=== PATIENT | female | born 2000 | race Caucasian/White ===

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

== ENCOUNTER 2021-03-03 01:21 | Emergency (ER) | payer OTHER, MEDICAID, SELFPAY ==
--- NOTE | 2021-03-03 01:23 | ED.BACK ---
HPI - Back Pain/Injury General Chief Complaint: Urogenital-Female Stated Complaint: lower lt back pain, radiating to rt side Time Seen by Provider: 03/03/21 01:23 History of Present Illness HPI Narrative: 20-year-old female nonsmoker presents with her significant other and a chief complaint of about 10 days of urinary complaints including dysuria, frequency and urgency. She has had UTIs in the past and states this feels similar. She has some tenderness over her bladder and states that it feels like it is wrapping around into her low back. She is nauseated but has no vomiting. She feels feverish but has not checked her temperature. Her pain is minimal. She denies any chest pain or shortness of breath. She is not dizzy nor weak or lightheaded. Related Data Home Medications Medication Instructions Recorded Confirmed CA PANTOTHENATE/FOLIC ACID/VIT 1 tab PO QDAY #0 07/24/10 (MULTIVITAMIN) Previous Rx's Medication Instructions Recorded amoxicillin 875 mg-potassium 1 tab PO BID #20 tab 12/08/19 clavulanate 125 mg tablet cefpodoxime 200 mg tablet 200 mg PO BID 10 Days #20 tab 03/03/21 fluconazole 150 mg tablet 150 mg PO Q3D #2 tab 03/03/21 Allergies Allergy/AdvReac Type Severity Reaction Status Date / Time red dye Allergy Rash Verified 12/08/19 00:30 Review of Systems Review of Systems Narrative: GENERAL: See HPI HEENT: Denies sinus pain, ear pain, sore throat, difficulty swallowing, dizziness. RESPIRATORY: Denies dyspnea, cough, wheezing, hemoptysis, sputum. CARDIOVASCULAR: Denies chest pain, palpitations, orthopnea, edema, GASTROINTESTINAL: Denies nausea, vomiting, abdominal pain, diarrhea, constipation, melena. : See HPI MUSCULOSKELETAL: denies weakness, joint pain, or bony pain SKIN: Denies rash, skin lesions, or other NEUROLOGIC: Denies weakness, headache, numbness, change in speech, confusion, seizures, incoordination. PSYCHIATRIC: No concerning psychosocial issues. 12 point review of systems is negative except for those stated above Patient History Medical History Pyelonephritis Social History Smoking Status: Never smoker Smoking Status: Never smoker Substance Use Type: does not use Exam Narrative Exam Narrative: GEN: AOx3 and in mild distress EYES: Pupils are equal, round, and reactive to light and accommodation. Extraoccular muscles are intact bilaterally. There is no subconjunctival hemorrhage or exudate. CHEST: Lungs are clear to auscultation bilaterally and free of wheezes, rales, or rhonchi. Heart rate is regular rhythm, there are no murmurs, clicks, rubs, or gallops. There is no chest wall tenderness. ABD: Abdomen is soft and mild tenderness over suprapubic region There is no guarding or rebound. Bowel sounds are normal in all 4 quadrants. There is no mass or organomegaly. BACK: Mild CVA tenderness bilaterally EXT: Full painless ROM of all extremities with no loss of sensation or strength. SKIN: Warm, pink, and dry. No erythema or rash Initial Vital Signs Initial Vital Signs: Vital Signs Temperature 98.4 F 03/03/21 01:27 Pulse Rate 89 03/03/21 01:27 Respiratory Rate 20 03/03/21 01:27 Blood Pressure 128/86 03/03/21 01:27 Pulse Oximetry 98 03/03/21 01:27 Course Orders Ordered: ED Orders 03/03/21 01:39 Test Urine Stat Urine Culture Stat Urine Microscopic Stat Discontinued Medications Cefuroxime Axetil (Cefuroxime 250 Mg Tablet) 500 mg PO NOW ONE Stop: 03/03/21 02:02 Cephalexin HCl (Cephalexin 250 Mg Capsule) 500 mg PO NOW ONE Stop: 03/03/21 02:26 Vital Signs Vital signs: Vital Signs - 8 hr 03/03/21 01:27 Temperature 98.4 F Pulse Rate 89 Respiratory Rate 20 Blood Pressure 128/86 Pulse Oximetry 98 MDM - Back Pain/Injury Lab Data Labs: Lab Results 03/03/21 03/03/21 Range/Units 01:39 01:39 Urine RBC 0-1/hpf (0-5/HPF) Urine WBC 1-5/hpf (0-5/HPF) Amorphous Sediment 3+ Urine Bacteria Few (2-10) H (None) Ur Culture Indicated? Culture not indicate Urine Test Negative (Negative) Urine Dip Bedside Urine Glucose Negative Bedside Urine Bilirubin - Negative Bedside Urine Ketone - Negative Urine Specific [place] 1.015 Bedside Urine Occult Blood ++ Bedside Urine pH 7.5 Bedside Urine Protein +/- 15 Bedside Urine Urobilinogen - Negative Bedside Urine Nitrite - Negative Bedside Urine Leukocytes ++ 125 Esterase MDM Narrative Medical decision making narrative: Patient with about 10 days of classic UTI symptoms, consistent with prior infection. Urine dip shows leuk esterase and blood. Her pain is well controlled and she is tolerating orals. She shows no signs of sepsis. She is appropriate for discharge with outpatient treatment of pyelonephritis. She has been given return precautions and questions answered to her apparent satisfaction Discharge Plan Departure Patient Disposition: Home Clinical Impression: Pyelonephritis Instructions: DI for Kidney Infection Activity Restrictions/Additional Instructions: *You have been diagnosed with [acute kidney infection] *What to do: *Please continue to take your regular medications as directed. [ x] New medication prescriptions sent to your pharmacy: [[facility] [place]] [ ] New medication written as a paper prescription [ ] No new medications given *Please follow up with your primary care provider in 2-3 days, call for an appointment. Let them know you were seen in the Emergency Department and that we ask that you be seen in follow up. We will electronically transmit a record of today's note if your PCP is in our system *If you do not have a primary care provider please contact the [facility] Resource line at [phone]. They will ask some questions about your medical history and help get you set up with a doctor in the community. *Return to Emergency Department if you should have any new, worsening or concerning symptoms, such as [fever greater than 101 F, shaking chills, worsening pain, persistent vomiting or other bothersome symptoms] Prescriptions: New cefpodoxime 200 mg tablet 200 mg PO BID 10 Days Qty: 20 0RF Rx Instructions: must administer with a meal/food fluconazole 150 mg tablet 150 mg PO Q3D Qty: 2 0RF Rx Instructions: may repeat second dose 72 hrs after first dose if symptoms persist No Action CA PANTOTHENATE/FOLIC ACID/VIT (MULTIVITAMIN) 1 tab PO QDAY Qty: 0 0RF amoxicillin-pot clavulanate 875-125 mg tablet 1 tab PO BID Qty: 20 0RF Referrals: Eagle Granados MD [Primary Care Provider] -
[2021-03-03 01:27] VITALS: BP 128/86; PULSE 89; RESP 20; TEMP 36.9; O2SAT 98; BMI 22.4
[2021-03-03 01:49] LABS: Pregnancy Test Urine Negative (Negative)
[2021-03-03 02:11] LABS: Amorphous Sediment Urine 3+; Bacteria Urine Few (2-10); RBC Urine 0-1/HPF (0-5/HPF); WBC Urine 1-5/HPF (0-5/HPF)
[2021-03-03] MEDS: ONDANSETRON 4 MG ODT PREPACK 1 BOTTLE MISC (02:39)
[2021-03-03] MEDS: cephALEXin 250 MG CAPSULE 500 MG PO (02:39)
== END 2021-03-03 02:45 | disposition home or self-care (01) ==
PROVIDERS: Emergency Provider Emergency Medicine; PCP Pediatrics
DX: N12 Tubulo-interstitial nephritis, not specified as acute or chronic (principal)
CPT/HCPCS: 81003; 81015; 81025; 87077; 87086; 87186; 99283

== ENCOUNTER 2021-09-21 20:47 | Emergency (ER) | payer OTHER, MEDICAID, SELFPAY ==
[2021-09-21 20:52] VITALS: BP 131/67; PULSE 101; RESP 20; TEMP 36.3; O2SAT 100; BMI 23.3
--- NOTE | 2021-09-21 20:54 | ED_ITS ---
HPI - Female Genitourinary General Chief complaint: Urogenital-Female Stated complaint: urine w/pain x5 days Time Seen by Provider: 09/21/21 20:52 History of Present Illness HPI Narrative: 20-year-old female nonsmoker with noncontributory medical history presents with a friend in the chief complaint of UTI symptoms for the past 5 days or so. She states that she has had urinary frequency, urgency and dysuria in the absence of any blood for the past few days. She has had a UTI in the past and states this feels similar. She denies any systemic findings such as fever, chills nor nausea, vomiting or back pain. She denies any vaginal bleeding or discharge. She denies any chance of Related Data Home Medications Medication Instructions Recorded Confirmed CA PANTOTHENATE/FOLIC ACID/VIT 1 tab PO QDAY ##0 07/24/10 (MULTIVITAMIN) Previous Rx's Medication Instructions Recorded amoxicillin 875 mg-potassium 1 tab PO BID #20 tabs 12/08/19 clavulanate 125 mg tablet fluconazole 150 mg tablet 150 mg PO Q3D 2 doses #2 tabs 03/03/21 cephalexin 500 mg capsule 500 mg PO Q6H 7 days #28 caps 09/21/21 fluconazole 150 mg tablet 150 mg PO Q3D 2 doses #2 tabs 09/21/21 Allergies Allergy/AdvReac Type Severity Reaction Status Date / Time red dye Allergy Rash Verified 12/08/19 00:30 Review of Systems Review of Systems Narrative: GENERAL: Denies chills, fatigue, malaise, fever, sweats. HEENT: Denies sinus pain, ear pain, sore throat, difficulty swallowing, dizziness. RESPIRATORY: Denies dyspnea, cough, wheezing, hemoptysis, sputum. CARDIOVASCULAR: Denies chest pain, palpitations, orthopnea, edema, GASTROINTESTINAL: Denies nausea, vomiting, abdominal pain, diarrhea, constipation, melena. : See HPI MUSCULOSKELETAL: denies weakness, joint pain, or bony pain SKIN: Denies rash, skin lesions, or other NEUROLOGIC: Denies weakness, headache, numbness, change in speech, confusion, seizures, incoordination. PSYCHIATRIC: No concerning psychosocial issues. 12 point review of systems is negative except for those stated above Patient History Medical History (Updated 09/21/21 @ 21:14 by Mateo [place], DO) Pyelonephritis alcohol intake frequency: 0-2 drinks per day Substance Use Type: does not use Exam Narrative Exam Narrative: GEN: AOx3 and in mild distress EYES: Pupils are equal, round, and reactive to light and accommodation. Extraoccular muscles are intact bilaterally. There is no subconjunctival hemorrhage or exudate. CHEST: Lungs are clear to auscultation bilaterally and free of wheezes, rales, or rhonchi. Heart rate is regular rhythm, there are no murmurs, clicks, rubs, or gallops. There is no chest wall tenderness. ABD: Abdomen is soft and nontender. There is no guarding or rebound. Bowel sounds are normal in all 4 quadrants. There is no mass or organomegaly. EXT: Full painless ROM of all extremities with no loss of sensation or strength. SKIN: Warm, pink, and dry. No erythema or rash Initial Vital Signs Initial Vital Signs: Vital Signs Temperature 97.4 F L 09/21/21 20:52 Pulse Rate 101 H 09/21/21 20:52 Respiratory Rate 20 09/21/21 20:52 Blood Pressure 131/67 09/21/21 20:52 Pulse Oximetry 100 09/21/21 20:52 Oxygen Delivery Method 09/21/21 20:52 Course Orders Ordered: ED Orders 09/21/21 21:05 Urine Culture Stat Urine Microscopic Stat Discontinued Medications Cefazolin Sodium (Cephalexin 250 Mg Prepack) 1 bottle MISC SEEINSTR ONE Stop: 09/21/21 21:13 Last Admin: 09/21/21 21:33 Dose: 1 bottle Documented By: ANGELO Vital Signs Vital signs: Vital Signs - 8 hr 09/21/21 20:52 Temperature 97.4 F L Pulse Rate 101 H Respiratory Rate 20 Blood Pressure 131/67 Pulse Oximetry 100 Oxygen Delivery Method Room Air MDM - Female Genitourinary Lab Data Labs: Lab Results 09/21/21 Range/Units 21:05 Urine RBC 0-1/hpf (0-5/HPF) Urine WBC 5-10/hpf H (0-5/HPF) Ur Squamous Epith Cells 1-5 /hpf (0-5/HPF) Amorphous Sediment 2+ Urine Bacteria Many (>30) H (None) Ur Culture Indicated? Culture not indicate Point of Care Testing Test Results Negative Urine Dip Bedside Urine Glucose Negative Bedside Urine Bilirubin - Negative Bedside Urine Ketone - Negative Urine Specific [place] 1.020 Bedside Urine Occult Blood - Negative Bedside Urine pH 7 Bedside Urine Protein - Negative Bedside Urine Urobilinogen - Negative Bedside Urine Nitrite + Positive Bedside Urine Leukocytes ++ 125 Esterase Discharge Plan Departure Patient Disposition: Home Clinical Impression: Urinary tract infection Instructions: DI for Urinary Tract Infection (UTI) Activity Restrictions/Additional Instructions: *You have been diagnosed with [acute urinary tract infection] *What to do: *Please continue to take your regular medications as directed. [x ] New medication prescriptions sent to your pharmacy: [[facility] ] [ ] New medication written as a paper prescription [ ] No new medications given *Please follow up with your primary care provider in 2-3 days, call for an appointment. Let them know you were seen in the Emergency Department and that we ask that you be seen in follow up. We will electronically transmit a record of today's note if your PCP is in our system *If you do not have a primary care provider please contact the [facility] Resource line at [phone]. They will ask some questions about your medical history and help get you set up with a doctor in the community. *Return to Emergency Department if you should have any new, worsening or concerning symptoms, such as [fever greater than 101 F, shaking chills, worsening pain, persistent vomiting or other bothersome symptoms] Prescriptions: New fluconazole 150 mg tablet 150 mg PO Q3D Qty: 2 0RF Rx Instructions: may repeat second dose 72 hrs after first dose if symptoms persist cephalexin 500 mg capsule 500 mg PO Q6H 7 Days Qty: 28 0RF No Action CA PANTOTHENATE/FOLIC ACID/VIT (MULTIVITAMIN) 1 tab PO QDAY Qty: 0 amoxicillin-pot clavulanate 875-125 mg tablet 1 tab PO BID Qty: 20 0RF fluconazole 150 mg tablet 150 mg PO Q3D Qty: 2 0RF Rx Instructions: may repeat second dose 72 hrs after first dose if symptoms persist Referrals: Eagle Granados MD [Primary Care Provider] - Visit Report Forms: Patient Portal/API
[2021-09-21] MEDS: cephALEXin 250 MG PREPACK 1 BOTTLE MISC (21:33)
[2021-09-21 21:41] LABS: Amorphous Sediment Urine 2+; Bacteria Urine Many (>30); Squamous Epithelial Cell Urine 1-5 /HPF (0-5/HPF); WBC Urine 5-10/HPF (0-5/HPF)
[2021-09-21 21:42] LABS: RBC Urine 0-1/HPF (0-5/HPF)
== END 2021-09-21 21:34 | disposition home or self-care (01) ==
PROVIDERS: Emergency Provider Emergency Medicine; PCP Pediatrics
DX: N39.0 Urinary tract infection, site not specified (principal)
CPT/HCPCS: 81003; 81015; 81025; 87077; 87086; 87186; 99282; 99283

== ENCOUNTER 2021-11-24 00:21 | Emergency (ER) | payer OTHER, MEDICAID, SELFPAY ==
[2021-11-24] VITALS (7 sets, daily range): BP systolic 83–127; BP diastolic 44–80; PULSE 70–92; RESP 20; TEMP 37.1; O2SAT 98–100
--- NOTE | 2021-11-24 00:42 | ED_ITS ---
HPI - General Adult General Chief complaint: Upper Respiratory Symptoms Stated complaint: FEVER/VOMITING/NECK PAIN Time Seen by Provider: 11/24/21 00:25 Source: patient Mode of arrival: Ambulatory History of Present Illness HPI narrative: 20-year-old female nonsmoker without significant chronic medical history presents with her significant other and a chief complaint of feeling generally unwell for the better part of a week. She has a gradually worsening generalized headache without any obvious provocation or palliation. She denies any trauma or head injury. She denies any blurred vision, trouble speech or dizziness. She has had some nausea and a few episodes of vomiting. Additionally can she complains of body aches joint pain. She has some neck pain but denies any stiffness. She denies abdominal pain, constipation, diarrhea nor dysuria, frequency or urgency. Related Data Home Medications Medication Instructions Recorded Confirmed CA PANTOTHENATE/FOLIC ACID/VIT 1 tab PO QDAY ##0 07/24/10 (MULTIVITAMIN) Previous Rx's Medication Instructions Recorded amoxicillin 875 mg-potassium 1 tab PO BID #20 tabs 12/08/19 clavulanate 125 mg tablet fluconazole 150 mg tablet 150 mg PO Q3D 2 doses #2 tabs 03/03/21 fluconazole 150 mg tablet 150 mg PO Q3D 2 doses #2 tabs 09/21/21 ondansetron 4 mg disintegrating 4 mg PO TID-QID PRN nausea and 11/24/21 tablet vomiting #10 tabs Allergies Allergy/AdvReac Type Severity Reaction Status Date / Time red dye Allergy Rash Verified 12/08/19 00:30 Review of Systems Review of Systems Narrative: GENERAL: See HPI HEENT: See HPI RESPIRATORY: Denies dyspnea, cough, wheezing, hemoptysis, sputum. CARDIOVASCULAR: Denies chest pain, palpitations, orthopnea, edema, GASTROINTESTINAL: See HPI : Denies dysuria, frequency, incontinence, hematuria, urinary retention. MUSCULOSKELETAL: denies weakness, joint pain, or bony pain SKIN: Denies rash, skin lesions, or other NEUROLOGIC: Denies weakness, headache, numbness, change in speech, confusion, seizures, incoordination. PSYCHIATRIC: No concerning psychosocial issues. 12 point review of systems is negative except for those stated above Patient History Medical History Pyelonephritis Social History Smoking Status: Never smoker Smoking Status: Never smoker alcohol intake frequency: 0-2 drinks per day Substance Use Type: does not use Exam Narrative Exam Narrative: GENERAL: [20] year old patient appears stated age. Well-developed patient, in mild distress. GCS 15 HEAD: Atraumatic. Normocephalic. EYES: Pupils equal round and reactive. Extraocular motions intact. No scleral icterus. No injection or drainage. ENT: Nose without bleeding, purulent drainage. Throat without erythema, tonsillar hypertrophy or exudate. Airway patent. NECK: Trachea midline. Non tender, no meningeal signs CARDIOVASCULAR: Regular rate and rhythm without murmurs, gallops, or rubs. RESPIRATORY: Clear to auscultation. Breath sounds equal bilaterally. No wheezes, rales, or rhonchi. GASTROINTESTINAL: Abdomen soft, non-tender, nondistended. EXTREMITIES: No edema or joint tenderness. BACK: Nontender without deformity or crepitance. No flank tenderness. NEURO: AOx3. SKIN: No rash or erythema of visible areas Initial Vital Signs Initial Vital Signs: Vital Signs Temperature 98.7 F 11/24/21 00:25 Pulse Rate 92 H 11/24/21 00:25 Respiratory Rate 20 11/24/21 00:25 Blood Pressure 127/80 11/24/21 00:25 Pulse Oximetry 100 11/24/21 00:25 Oxygen Delivery Method 11/24/21 00:25 Course Orders Ordered: ED Orders 11/24/21 00:27 COVID19 -Nasal RAPID/Pre-Proc Stat 11/24/21 01:00 Acetaminophen Stat Complete Blood Count AUTO DIFF Stat Comprehensive Metabolic Panel Stat Monotest Stat 11/24/21 01:50 Hepatitis Acute Panel Stat Discontinued Medications Sodium Chloride (Normal Saline 0.9%) 1,000 mls @ 1,000 mls/hr IV BOLUS ONE Stop: 11/24/21 01:41 Last Admin: 11/24/21 01:14 Dose: 1,000 mls/hr Documented By: IVONNE Ketorolac Tromethamine (Ketorolac 30 Mg/Ml Vial) 15 mg IV NOW ONE Stop: 11/24/21 00:43 Last Admin: 11/24/21 01:13 Dose: 15 mg Documented By: IVONNE Ondansetron HCl (Ondansetron 4 Mg/2 Ml Inj) 4 mg IV NOW ONE Stop: 11/24/21 00:43 Last Admin: 11/24/21 01:13 Dose: 4 mg Documented By: AP Vital Signs Vital signs: Vital Signs - 8 hr 11/24/21 00:25 11/24/21 01:13 11/24/21 01:23 Temperature 98.7 F Pulse Rate 92 H 76 Respiratory Rate 20 Blood Pressure 127/80 94/68 Pulse Oximetry 100 98 Oxygen Delivery Method Room Air 11/24/21 01:23 11/24/21 01:30 11/24/21 01:31 Temperature Pulse Rate 77 75 73 Respiratory Rate Blood Pressure Pulse Oximetry 99 100 99 Oxygen Delivery Method 11/24/21 01:31 Temperature Pulse Rate Respiratory Rate Blood Pressure 91/44 L Pulse Oximetry Oxygen Delivery Method Medical Decision Making Lab Data Result diagrams: 11/24/21 01:00 11/24/21 01:00 Labs: Lab Results 11/24/21 11/24/21 11/24/21 Range/Units 00:27 01:00 01:00 WBC 2.9 L (4.5-11.0) X10^3/uL RBC 4.03 (4.0-5.2) X10^6/uL Hgb 12.4 (12.0-16.0) g/dL Hct 35.5 L (36-46) % MCV 88.1 (80-100) fL MCH 30.7 (26-34) PG MCHC 34.9 (30-36) % RDW 12.5 (11.6-14.8) % Plt Count 92 L (150-400) X10^3/uL Neut % (Auto) Not Reportable Lymph % (Auto) Not Reportable [place] % (Auto) Not Reportable Eos % (Auto) Not Reportable Baso % (Auto) Not Reportable Lymph # (Auto) Not Reportable [place] # (Auto) Not Reportable Baso # (Auto) Not Reportable Sodium 136 L (137-145) mmol/L Potassium 4.5 (3.4-5.1) mmol/L Chloride 104 (98-107) mmol/L Carbon Dioxide 28 (22-32) mmol/L BUN 8 (7-17) mg/dL Creatinine 0.42 L (0.52-1.04) mg/dL Estimated GFR > 60 (>60) mL/min BUN/Creatinine Ratio 19.0 (6-22) Glucose 104 H (70-100) mg/dL Calcium 8.8 (8.4-10.2) mg/dL Total Bilirubin 1.0 (0.2-1.3) mg/dL AST 319 H (14-36) IU/L ALT 447 H (<35) IU/L Alkaline Phosphatase 193 H (38-126) U/L Total Protein 6.7 (6.3-8.2) g/dL Albumin 3.9 (3.5-5.0) g/dL Globulin 2.8 (1.7-4.1) g/dL Albumin/Globulin Ratio 1.4 (1.0-2.8) Acetaminophen (10-30) ug/mL SARS-CoV-2 (PCR) Negative (Negative) Monoscreen (Negative) 11/24/21 11/24/21 Range/Units 01:00 01:00 WBC (4.5-11.0) X10^3/uL RBC (4.0-5.2) X10^6/uL Hgb (12.0-16.0) g/dL Hct (36-46) % MCV (80-100) fL MCH (26-34) PG MCHC (30-36) % RDW (11.6-14.8) % Plt Count (150-400) X10^3/uL Neut % (Auto) Lymph % (Auto) [place] % (Auto) Eos % (Auto) Baso % (Auto) Lymph # (Auto) [place] # (Auto) Baso # (Auto) Sodium (137-145) mmol/L Potassium (3.4-5.1) mmol/L Chloride (98-107) mmol/L Carbon Dioxide (22-32) mmol/L BUN (7-17) mg/dL Creatinine (0.52-1.04) mg/dL Estimated GFR (>60) mL/min BUN/Creatinine Ratio (6-22) Glucose (70-100) mg/dL Calcium (8.4-10.2) mg/dL Total Bilirubin (0.2-1.3) mg/dL AST (14-36) IU/L ALT (<35) IU/L Alkaline Phosphatase (38-126) U/L Total Protein (6.3-8.2) g/dL Albumin (3.5-5.0) g/dL Globulin (1.7-4.1) g/dL Albumin/Globulin Ratio (1.0-2.8) Acetaminophen < 10 (10-30) ug/mL SARS-CoV-2 (PCR) (Negative) Monoscreen Positive H (Negative) Point of Care Testing Test Results Negative Urine Dip Bedside Urine Glucose Negative Bedside Urine Bilirubin - Negative Bedside Urine Ketone - Negative Urine Specific [place] 1.005 Bedside Urine Occult Blood - Negative Bedside Urine pH 8.5 Bedside Urine Protein - Negative Bedside Urine Urobilinogen 0.2 Bedside Urine Nitrite - Negative Bedside Urine Leukocytes - Negative Esterase Point of care testing: Point of Care Testing Test Results Negative Urine Dip Bedside Urine Glucose Negative Bedside Urine Bilirubin - Negative Bedside Urine Ketone - Negative Urine Specific [place] 1.005 Bedside Urine Occult Blood - Negative Bedside Urine pH 8.5 Bedside Urine Protein - Negative Bedside Urine Urobilinogen 0.2 Bedside Urine Nitrite - Negative Bedside Urine Leukocytes - Negative Esterase Discharge Plan Departure Patient Disposition: Home Clinical Impression: Mononucleosis Instructions: DI for Mononucleosis-Adult Activity Restrictions/Additional Instructions: *You have been diagnosed with [multiple symptoms due to infectious mononucleosis. As we discussed there is no specific treatment and this is a self-limited illness that will resolve with time.] *What to do: *Please continue to take your regular medications as directed. [ x] New medication prescriptions sent to your pharmacy: [[facility] in [place] ] [ ] New medication written as a paper prescription [ ] No new medications given *Please follow up with your primary care provider in 2-3 days, call for an appointment. Let them know you were seen in the Emergency Department and that we ask that you be seen in follow up. We will electronically transmit a record of today's note if your PCP is in our system *If you do not have a primary care provider please contact the [facility] Resource line at [phone]. They will ask some questions about your medical h istory and help get you set up with a doctor in the community. *Return to Emergency Department if you should have any new, worsening or concerning symptoms, such as [fever greater than 101 F, shaking chills, worsening pain, persistent vomiting or other bothersome symptoms] Prescriptions: New ondansetron 4 mg tablet,disintegrating 4 mg PO TID-QID PRN (Reason: nausea and vomiting) Qty: 10 0RF No Action CA PANTOTHENATE/FOLIC ACID/VIT (MULTIVITAMIN) 1 tab PO QDAY Qty: 0 amoxicillin-pot clavulanate 875-125 mg tablet 1 tab PO BID Qty: 20 0RF fluconazole 150 mg tablet 150 mg PO Q3D Qty: 2 0RF Rx Instructions: may repeat second dose 72 hrs after first dose if symptoms persist fluconazole 150 mg tablet 150 mg PO Q3D Qty: 2 0RF Rx Instructions: may repeat second dose 72 hrs after first dose if symptoms persist Stand Alone Forms: Work Release Note
[2021-11-24 01:00] LABS: COVID19 -Nasal RAPID Negative (Negative)
[2021-11-24 01:13] LABS: Hematocrit 35.5 % (36-46); Hemoglobin 12.4 g/dL (12.0-16.0); Mean Corpuscular HGB Conc 34.9 % (30-36); Mean Corpuscular Hemoglobin 30.7 PG (26-34); Mean Corpuscular Volume 88.1 fL (80-100); Platelet Count 92 X10^3/uL (150-400); Red Blood Cell Count 4.03 X10^6/uL (4.0-5.2); Red Cell Distribution Width 12.5 % (11.6-14.8); White Blood Cell Count 2.9 X10^3/uL (4.5-11.0)
[2021-11-24] MEDS: ONDANSETRON 4 MG/2 ML INJ IV (01:13)
[2021-11-24] MEDS: KETOROLAC 30 MG/ML VIAL 15 MG IV (01:13)
[2021-11-24 01:14] LABS: Add Manual Diff / Slide Review YES
[2021-11-24] MEDS: SODIUM CHLORIDE 0.9% 1,000 ML 1000 ML IV (01:14)
[2021-11-24 01:19] LABS: Alanine Aminotransferase 447 IU/L (<35); Albumin 3.9 g/dL (3.5-5.0); Albumin Globulin Ratio 1.4 (1.0-2.8); Alkaline Phosphatase 193 U/L (38-126); Aspartate Aminotransferase 319 IU/L (14-36); Blood Urea Nitrogen 8 mg/dL (7-17); Calcium 8.8 mg/dL (8.4-10.2); Carbon Dioxide 28 mmol/L (22-32); Chloride 104 mmol/L (98-107); Estimated Glomerular Filt Rate > 60 mL/min (>60); Globulin 2.8 g/dL (1.7-4.1); Glucose 104 mg/dL (70-100); HEMOLYSIS < 15 (0-50); Potassium 4.5 mmol/L (3.4-5.1); Sodium 136 mmol/L (137-145); Total Protein 6.7 g/dL (6.3-8.2)
[2021-11-24 02:04] LABS: Monotest Positive (Negative)
[2021-11-24 02:14] LABS: Acetaminophen < 10 ug/mL (10-30)
[2021-11-24 03:55] LABS: Neutrophils Absolute Manual 783 /uL (3000-5900); Total Cells Counted 100
[2021-11-24 03:58] LABS: Platelet Estimate Decreased on smear; RBC Morphology Normal Morphology
[2021-11-25 09:07] LABS: HBsAg Screen Negative (Negative); Hepatitis A Antibody IgM Negative (Negative); Hepatitis B Core Antibody IgM Negative (Negative); Hepatitis C Antibody <0.1 s/co ratio (0.0-0.9)
== END 2021-11-24 02:33 | disposition home or self-care (01) ==
PROVIDERS: Emergency Provider Emergency Medicine
DX: B27.90 Infectious mononucleosis, unspecified without complication (principal); Z20.822 Contact with and (suspected) exposure to COVID-19
CPT/HCPCS: 36415; 80053; 80074; 80329; 81003; 81025; 85007; 85025; 86318; 87635; 96361; 96374; 96375; 99284; C9803; G0480; J1885; J2405

== ENCOUNTER 2022-01-10 14:24 | Emergency (ER) | payer OTHER, MEDICAID, SELFPAY ==
[2022-01-10 14:34] VITALS: BP 103/69; PULSE 92; RESP 18; TEMP 36.8; O2SAT 98; BMI 23.3
[2022-01-10 15:17] LABS: COVID19 -Nasal RAPID POSITIVE (Negative)
--- NOTE | 2022-01-10 15:25 | ED_ITS ---
HPI - URI/Sore Throat <Joshua Finch PA-C - Last Filed: 01/10/22 15:33> General Chief Complaint: Upper Respiratory Symptoms Stated Complaint: Thinks strep throat Time Seen by Provider: 01/10/22 15:13 Source: patient Mode of arrival: Ambulatory History of Present Illness HPI Narrative: Patient is a 21-year-old female who presents to emergency room today with complaint of productive cough for green secretions cough sore throat and increased sinus pressure for about 2 days. Denies chest pain or shortness of breath. Also denies being exposed to any known COVID positive patients. Main concern today is ruling out COVID and ruling out strep throat. States that her job advised her to come to the emergency room to have that done. Has taken NyQuil and DayQuil for her symptoms which has helped a little. Related Data Home Medications Medication Instructions Recorded Confirmed CA PANTOTHENATE/FOLIC ACID/VIT 1 tab PO QDAY ##0 07/24/10 (MULTIVITAMIN) Previous Rx's Medication Instructions Recorded amoxicillin 875 mg-potassium 1 tab PO BID #20 tabs 12/08/19 clavulanate 125 mg tablet fluconazole 150 mg tablet 150 mg PO Q3D 2 doses #2 tabs 03/03/21 fluconazole 150 mg tablet 150 mg PO Q3D 2 doses #2 tabs 09/21/21 ondansetron 4 mg disintegrating 4 mg PO TID-QID PRN nausea and 11/24/21 tablet vomiting #10 tabs Allergies Allergy/AdvReac Type Severity Reaction Status Date / Time red dye Allergy Rash Verified 01/10/22 14:39 Review of Systems <Joshua Finch PA-C - Last Filed: 01/10/22 15:33> Review of Systems Narrative: R.O.S.: General: No fever, chills or fatigue. Cardiovascular: No chest pain or palpitations Respiratory: Denies shortness of breath HEENT: Sore throat sinus pressure Gastrointestinal: No nausea or vomiting : No urinary concerns Skin: No rash or associated abnormalities Musculoskeletal: No pain in muscles or joints, no limitation of range of motion, no paresthesia or numbness. ?? Neurological: Awake, alert and in not apparent distress. No Headaches, changes in vision or other related neurological concerns. Patient History <Joshua Finch PA-C - Last Filed: 01/10/22 15:33> Medical History (Updated 01/10/22 @ 15:31 by Joshua Finch PA-C) Pyelonephritis Social History Smoking Status: Never smoker Smoking Status: Never smoker alcohol intake frequency: 0-2 drinks per day Substance Use Type: does not use Exam <Joshua Finch PA-C - Last Filed: 01/10/22 15:33> Narrative Exam Narrative: Physical Exam: ? General: normal appearance, well developed, well nourished, alert, and awake. Appears to be in mild distress. ? Head: Normocephalic, no lesions. Chest: Lungs CTAB, no rales, rhonchi or wheezes. ?? Heart: RRR, no murmurs, rubs or gallops. Eyes: PERRLA, EOM's full, conjunctivae clear. ? Neuro: Physiological, no localizing findings, CN3-12 intact. ?? Extremities: Warm, well perfused, FROM, no deformities, no edema. ?? Skin: Normal, no rashes, no lesions noted. ?? PSYCHIATRIC: The mood is good, no blunted affect. Speech is clear. Thought process is linear, thought content is appropriate. The voice is without significant inflection. Gastrointestinal: Soft; NT; ND; Pos BS with Neg. rebound tenderness. No scars or major deformities noted on Visual Inspection. Initial Vital Signs Initial Vital Signs: Vital Signs Temperature 98.3 F 01/10/22 14:34 Pulse Rate 92 H 01/10/22 14:34 Respiratory Rate 18 01/10/22 14:34 Blood Pressure 103/69 01/10/22 14:34 Pulse Oximetry 98 01/10/22 14:34 Oxygen Delivery Method 01/10/22 14:34 <Lico Dyson DO - Last Filed: 01/10/22 15:51> Initial Vital Signs Initial Vital Signs: Vital Signs Temperature 98.3 F 01/10/22 14:34 Pulse Rate 92 H 01/10/22 14:34 Respiratory Rate 18 01/10/22 14:34 Blood Pressure 103/69 01/10/22 14:34 Pulse Oximetry 98 01/10/22 14:34 Oxygen Delivery Method 01/10/22 14:34 Course <Joshua Finch PA-C - Last Filed: 01/10/22 15:33> Orders Ordered: ED Orders 01/10/22 14:53 COVID19 -Nasal RAPID/Pre-Proc Stat Vital Signs Vital signs: Vital Signs - 8 hr 01/10/22 14:34 Temperature 98.3 F Pulse Rate 92 H Respiratory Rate 18 Blood Pressure 103/69 Pulse Oximetry 98 Oxygen Delivery Method Room Air <Lico Dyson DO - Last Filed: 01/10/22 15:51> Orders Ordered: ED Orders 01/10/22 14:53 COVID19 -Nasal RAPID/Pre-Proc Stat Vital Signs Vital signs: Vital Signs - 8 hr 01/10/22 14:34 Temperature 98.3 F Pulse Rate 92 H Respiratory Rate 18 Blood Pressure 103/69 Pulse Oximetry 98 Oxygen Delivery Method Room Air MDM - URI/Sore Throat <Johsua Finch PA-C - Last Filed: 01/10/22 15:33> Lab Data Labs: Lab Results 01/10/22 Range/Units 14:53 SARS-CoV-2 (PCR) Positive H (Negative) Point of Care Testing Rapid Strep A Negative MDM Narrative Medical decision making narrative: Patient is a 21-year-old female who presents to the emergency room with common upper respiratory symptoms and was positive on her COVID testing. Strep throat was negative. Patient was advised to continue home remedies and [id number] medications for symptomatic relief. Patient also advised to return to the emergency room for any emergent concerns arise. Patient agrees with plan <DO Getachew Quesada Last Filed: 01/10/22 15:51> Lab Data Labs: Lab Results 01/10/22 Range/Units 14:53 SARS-CoV-2 (PCR) Positive H (Negative) Point of Care Testing Rapid Strep A Negative Discharge Plan Departure Patient Disposition: Home Clinical Impression: COVID-19 Instructions: COVID-19 Activity Restrictions/Additional Instructions: *You have been diagnosed with COVID-19. I suggest you continue to use [id number] medications and home remedies for symptomatic relief. You are also advised to quarantine and wear a mask while in public 2 weeks. I also suggest you return to the emergency room should any emergent concerns arise. [ ] *What to do: *Please continue to take your regular medications as directed. [ ] New medication prescriptions sent to your pharmacy: [ ] [ ] New medication written as a paper prescription [x] No new medications given *Please follow up with your primary care provider in 2-3 days, call for an appointment. Let them know you were seen in the Emergency Department and that we ask that you be seen in follow up. We will electronically transmit a record of today's note if your PCP is in our system *If you do not have a primary care provider please contact the [facility] Resource line at [phone]. They will ask some questions about your medical history and help get you set up with a doctor in the community. *Return to Emergency Department if you should have any new, worsening or concerning symptoms, such as [fever greater than 101 F, shaking chills, worsening pain, persistent vomiting or other bothersome symptoms] Prescriptions: No Action CA PANTOTHENATE/FOLIC ACID/VIT (MULTIVITAMIN) 1 tab PO QDAY Qty: 0 amoxicillin-pot clavulanate 875-125 mg tablet 1 tab PO BID Qty: 20 0RF fluconazole 150 mg tablet 150 mg PO Q3D Qty: 2 0RF Rx Instructions: may repeat second dose 72 hrs after first dose if symptoms persist fluconazole 150 mg tablet 150 mg PO Q3D Qty: 2 0RF Rx Instructions: may repeat second dose 72 hrs after first dose if symptoms persist ondansetron 4 mg tablet,disintegrating 4 mg PO TID-QID PRN (Reason: nausea and vomiting) Qty: 10 0RF Referrals: Wendy Mahan PA-C [Primary Care Provider] - Stand Alone Forms: Work Release Note Visit Report Forms: Patient Portal/API <Lico Dyson, DO - Last Filed: 01/10/22 15:51> [facility] Dr Dyson Co-Sign Statement: I was available for consultation during this patient's emergency department visit. This chart is signed by myself for administrative purposes only. I did not have direct contact with this patient during this visit. They were seen independently by the [facility].
== END 2022-01-10 15:37 | disposition home or self-care (01) ==
PROVIDERS: Emergency Medicine; Emergency Provider Physician Assistant; PCP Physician Assistant
DX: U07.1 COVID-19 (principal)
CPT/HCPCS: 87635; 87880; 99282; C9803

== ENCOUNTER 2023-10-09 22:47 | Emergency (ER) | payer OTHER, MEDICAID, SELFPAY ==
[2023-10-09 22:59] VITALS: BP 129/75; PULSE 85; RESP 18; TEMP 37.1; O2SAT 100; BMI 24.0
--- NOTE | 2023-10-09 23:45 | ED_ITS ---
HPI - Female Genitourinary General Chief complaint: Urogenital-Female Stated complaint: Heavy bleeding T-6/has IUD/positive preg test Time Seen by Provider: 10/09/23 23:19 Source: patient Mode of arrival: Ambulatory History of Present Illness HPI Narrative: 22yo patient with no reported past medical history presents by private vehicle from home for 6 days of heavy vaginal bleeding with large clots and positive home test. Patient has an IUD in place for the last 3 years. She states that she normally only gets light menstrual periods without heavy bleeding. The presence of large clots was concerning to her and so she took two home tests. She states that both of them were positive and so she decided to present for evaluation. This would not be a desired . This would be her 1st . Related Data Home Medications Medication Instructions Recorded Confirmed CA PANTOTHENATE/FOLIC ACID/VIT 1 tab PO QDAY ##0 07/24/10 (MULTIVITAMIN) Previous Rx's Medication Instructions Recorded amoxicillin 875 mg-potassium 1 tab PO BID #20 tabs 12/08/19 clavulanate 125 mg tablet fluconazole 150 mg tablet 150 mg PO Q3D 2 doses #2 tabs 03/03/21 fluconazole 150 mg tablet 150 mg PO Q3D 2 doses #2 tabs 09/21/21 ondansetron 4 mg disintegrating 4 mg PO TID-QID PRN nausea and 11/24/21 tablet vomiting #10 tabs Allergies Allergy/AdvReac Type Severity Reaction Status Date / Time red dye Allergy Rash Verified 01/10/22 14:39 Patient History Medical History (Updated 10/10/23 @ 02:31 by Elaina Jewell MD) Pyelonephritis alcohol intake frequency: 0-2 drinks per day Substance Use Type: does not use Exam Initial Vital Signs Initial Vital Signs: Vital Signs Temperature 98.8 F 10/09/23 22:59 Pulse Rate 85 10/09/23 22:59 Respiratory Rate 18 10/09/23 22:59 Blood Pressure 129/75 10/09/23 22:59 Pulse Oximetry 100 10/09/23 22:59 Oxygen Delivery Method Room Air 10/09/23 22:59 Const: Awake, alert, no acute distress, nontoxic appearing Cardiac: regular rate, regular rhythm RESP: unlabored, speaking in complete sentences GI: Soft, nontender, nondistended Skin: Warm, Dry, intact, no rashes Neuro: AO x3, CN II-XII grossly intact, moves all extremities Course Orders Ordered: ED Orders 10/09/23 23:47 BMP [Basic Metabolic Panel] Stat CBC Auto Diff [Complete Blood Count AUTO DIFF] Stat HCG Quantitative /Beta subunit Stat 10/09/23 23:56 US pelvic complete Stat 10/10/23 00:21 ABO RH Type Stat 10/10/23 03:17 Hepatic (Liver) Panel Stat Discontinued Medications Methotrexate (Methotrexate 25 Mg/Ml Vial) 80 mg 50 mg/m2 (80 mg) IM NOW ONE Stop: 10/10/23 02:28 Last Admin: 10/10/23 03:29 Dose: Not Given Documented By: GEOFF Rho Immune Globulin (Rho(D) Immune Globulin 1,500 Unit Syringe) 1,500 unit IM NOW ONE Stop: 10/10/23 02:21 Last Admin: 10/10/23 02:53 Dose: 1,500 unit Documented By: GEOFF Vital Signs Vital signs: Vital Signs - 8 hr 10/09/23 22:59 10/10/23 03:34 Temperature 98.8 F Pulse Rate 85 68 Respiratory Rate 18 20 Blood Pressure 129/75 103/61 Pulse Oximetry 100 98 Oxygen Delivery Method Room Air Room Air MDM - Female Genitourinary Lab Data 10/09/23 23:47 10/09/23 23:47 Labs: Lab Results 10/09/23 10/10/23 Range/Units 23:47 03:17 WBC 8.3 (4.5-11.0) X10^3/uL RBC 4.32 (4.0-5.2) X10^6/uL Hgb 13.3 (12.0-16.0) g/dL Hct 37.7 (36-46) % MCV 87.3 (80-100) fL MCH 30.8 (26-34) PG MCHC 35.2 (30-36) % RDW 12.4 (11.6-14.8) % Plt Count 312 (150-400) X10^3/uL Neut % (Auto) 57.7 (50-75) % Lymph % (Auto) 34.9 (25-40) % [place] % (Auto) 6.0 (3-14) % Eos % (Auto) 0.6 L (2-4) % Baso % (Auto) 0.8 (0-2) % Neut # (Auto) 4800 (5332-7329) /uL Lymph # (Auto) 2900 (4220-1524) /uL [place] # (Auto) 500 (0-900) /uL Eos # (Auto) 100 (0-450) /uL Baso # (Auto) 100 (0-100) /uL Sodium 140 (137-145) mmol/L Potassium 3.7 (3.4-5.1) mmol/L Chloride 106 (98-107) mmol/L Carbon Dioxide 26 (22-32) mmol/L BUN 10 (7-17) mg/dL Creatinine 0.61 (0.52-1.04) mg/dL Estimated GFR > 60 (>60) mL/min BUN/Creatinine Ratio 16.4 (6-22) Glucose 89 (70-100) mg/dL Calcium 9.5 (8.4-10.2) mg/dL Total Bilirubin 0.6 (0.2-1.3) mg/dL Conjugated Bilirubin 0.0 (0.0-0.3) md/dL Unconjugated Bilirubin 0.1 (0.0-1.1) mg/dL AST 28 (14-36) IU/L ALT 13 (<35) IU/L Alkaline Phosphatase 57 (38-126) U/L Total Protein 7.5 (6.3-8.2) g/dL Albumin 4.7 (3.5-5.0) g/dL Globulin 2.8 (1.7-4.1) g/dL Albumin/Globulin Ratio 1.7 (1.0-2.8) HCG, Quant 1181.7 mIU/mL Blood Type O Negative Point of Care Testing Test Results Positive Urine Dip Bedside Urine Glucose Negative Bedside Urine Bilirubin - Negative Bedside Urine Ketone - Negative Urine Specific [place] 1.010 Bedside Urine Occult Blood - Negative Bedside Urine pH 6.5 Bedside Urine Protein - Negative Bedside Urine Urobilinogen - Negative Bedside Urine Nitrite - Negative Bedside Urine Leukocytes - Negative Esterase Imaging Data US - PERSONALIZED LIVING MANAGER: Radiologist's Impression: PROCEDURE: US PELVIC COMPLETE INDICATIONS: POSITIVE , SPOTTING, IUD TECHNIQUE: Real-time scanning was performed of the pelvic organs, with image documentation. Additional endovaginal scanning was necessary due to incomplete visualization of the adnexal and endometrial structures by transabdominal scanning. COMPARISON: None. FINDINGS: Uterus: Uterus is anteverted and normal in size at 7.1 x 3.6 x 5.4 cm. The myometrium is homogeneous. The endometrium measures 15.2 mm combined thickness. Intrauterine device is present. There is endometrial mass containing calcifications and without vasculature measuring 1.9 x 1.2 x 1.4 cm. No intrauterine gestational sac visualized. Ovaries: The right ovary measures 3.5 x 3.1 x 2.2 cm, with a calculated ovarian volume of 12.4 cc. The left ovary measures 1.9 x 2.3 x 1.7 cm, with a calculated ovarian volume of 4.0 cc. The ovaries have a normal sonographic appearance. Less than 12 follicles can be seen in each ovary. There is a right adnexal heterogeneous mass measuring 2.5 x 1.7 by 2.8 cm with peripheral vasculature. Other: No pathologic free abdominal or pelvic fluid. IMPRESSION: Intrauterine device is present with focal area of endometrial thickening containing calcifications and without vascularity measuring up to 1.9 cm, possible polyp versus submucosal fibroid. No intrauterine gestation identified. No sonographic evidence of ectopic at this time. Recommend serial beta HCG and pelvic ultrasound as clinicallyindicated. Possible right adnexal hemorrhagic cyst measuring up to 2.8 cm. Recommend follow-up pelvic ultrasound in 6-12 weeks. Approved by: Analilia Srinivasan M.D.,Ph.D. on 10/10/2023 at 2:11 MDM Narrative Medical decision making narrative: Well-appearing patient with vaginal bleeding. She has an IUD present but positive home test at home. Point of care test in the emergency department positive. Laboratory work and hCG quant level ordered as well as pelvic ultrasound. HCG quant level 1181.7. Blood type O negative. Other laboratory work within normal limits. Ultrasound shows IUD present, no intrauterine , 2.8 cm right adnexal mass with vasculature present. Discussed case with on-call OBGYN doctor Angella, who recommended RhoGAM as well as IM methotrexate due to the presence of IUD and the 2.8 cm adnexal mass present with no confirmed IUP as well as close OBGYN follow up. Patient informed of lab and imaging findings as well as OBGYN recommendations. Patient in agreement with plan. Patient administered IM RhoGAM, however there is no IM methotrexate present anywhere in our hospital system. Called OBGYN to discuss possible alternative dosing regimens, however per Dr. Perales IM is the only indicated administration in the circumstance. Call placed to [facility]. Discussed with EM Dr. Constantino, who agreed to see patient in ED for possible methotrexate administration. Patient informed of where she can receive methotrexate. Patient states that she will go POV to [facility]. Discharge Plan Departure Patient Disposition: Home Clinical Impression: Positive test, IUD (intrauterine device) in place Instructions: DI for Therapeutic : Medical Activity Restrictions/Additional Instructions: Your evaluation today confirmed positive test. Your hCG quant level was 1181 today. Ultrasound could not confirm whether there was an intrauterine present. There was a 2.8 cm area on your right ovary that could possibly be a hemorrhagic cyst, however this is indeterminate. Because you were blood type O negative you were given RhoGAM. After discussion with you and OBGYN methotrexate was recommended, however we do not currently have this medication in her hospital. I did confirm with [facility] that they should have this medication. Please follow up within the next 24 hours for methotrexate administration. Prescriptions: No Action CA PANTOTHENATE/FOLIC ACID/VIT (MULTIVITAMIN) 1 tab PO QDAY Qty: 0 amoxicillin-pot clavulanate 875-125 mg tablet 1 tab PO BID Qty: 20 0RF fluconazole 150 mg tablet 150 mg PO Q3D Qty: 2 0RF Rx Instructions: may repeat second dose 72 hrs after first dose if symptoms persist fluconazole 150 mg tablet 150 mg PO Q3D Qty: 2 0RF Rx Instructions: may repeat second dose 72 hrs after first dose if symptoms persist ondansetron 4 mg tablet,disintegrating 4 mg PO TID-QID PRN (Reason: nausea and vomiting) Qty: 10 0RF Referrals: Wendy Mahan PA-C [Primary Care Provider] - Vidya Perales DO [Physician] - Stand Alone Forms: Patient Portal/API
[2023-10-09 23:55] LABS: Add Manual Diff / Slide Review NO; Basophils Absolute Auto 100 /uL (0-100); Basophils Percent Auto 0.8 % (0-2); Eosinophils Absolute Auto 100 /uL (0-450); Eosinophils Percent Auto 0.6 % (2-4); Hematocrit 37.7 % (36-46); Hemoglobin 13.3 g/dL (12.0-16.0); Lymphocytes Absolute Auto 2900 /uL (1100-4500); Lymphocytes Percent Auto 34.9 % (25-40); Mean Corpuscular HGB Conc 35.2 % (30-36); Mean Corpuscular Hemoglobin 30.8 PG (26-34); Mean Corpuscular Volume 87.3 fL (80-100); Monocytes Absolute Auto 500 /uL (0-900); Neutrophils Absolute Auto 4800 /uL (1500-7000); Neutrophils Percent Auto 57.7 % (50-75); Platelet Count 312 X10^3/uL (150-400); Red Blood Cell Count 4.32 X10^6/uL (4.0-5.2); Red Cell Distribution Width 12.4 % (11.6-14.8); White Blood Cell Count 8.3 X10^3/uL (4.5-11.0)
--- NOTE | 2023-10-09 23:56 | DI.US.S_ITS ---
PROCEDURE: US PELVIC COMPLETE INDICATIONS: POSITIVE , SPOTTING, IUD TECHNIQUE: Real-time scanning was performed of the pelvic organs, with image documentation. Additional endovaginal scanning was necessary due to incomplete visualization of the adnexal and endometrial structures by transabdominal scanning. COMPARISON: None. FINDINGS: Uterus: Uterus is anteverted and normal in size at 7.1 x 3.6 x 5.4 cm. The myometrium is homogeneous. The endometrium measures 15.2 mm combined thickness. Intrauterine device is present. There is endometrial mass containing calcifications and without vasculature measuring 1.9 x 1.2 x 1.4 cm. No intrauterine gestational sac visualized. Ovaries: The right ovary measures 3.5 x 3.1 x 2.2 cm, with a calculated ovarian volume of 12.4 cc. The left ovary measures 1.9 x 2.3 x 1.7 cm, with a calculated ovarian volume of 4.0 cc. The ovaries have a normal sonographic appearance. Less than 12 follicles can be seen in each ovary. There is a right adnexal heterogeneous mass measuring 2.5 x 1.7 by 2.8 cm with peripheral vasculature. Other: No pathologic free abdominal or pelvic fluid. IMPRESSION: Intrauterine device is present with focal area of endometrial thickening containing calcifications and without vascularity measuring up to 1.9 cm, possible polyp versus submucosal fibroid. No intrauterine gestation identified. No sonographic evidence of ectopic at this time. Recommend serial beta HCG and pelvic ultrasound as clinicallyindicated. Possible right adnexal hemorrhagic cyst measuring up to 2.8 cm. Recommend follow-up pelvic ultrasound in 6-12 weeks. Approved by: Analilia Srinivasan M.D.,Ph.D. on 10/10/2023 at 2:11
[2023-10-10 00:11] LABS: BUN Creatinine Ratio 16.4 (6-22); Blood Urea Nitrogen 10 mg/dL (7-17); Calcium 9.5 mg/dL (8.4-10.2); Carbon Dioxide 26 mmol/L (22-32); Chloride 106 mmol/L (98-107); Estimated Glomerular Filt Rate > 60 mL/min (>60); Glucose 89 mg/dL (70-100); HEMOLYSIS < 15 (0-50); Potassium 3.7 mmol/L (3.4-5.1); Sodium 140 mmol/L (137-145)
[2023-10-10 00:35] LABS: HCG Quantitative /Beta subunit 1181.7 mIU/mL
[2023-10-10] MEDS: RHO(D) IMMUNE GLOBULIN 1,500 UNIT SYRINGE 1500 UNIT IM (02:53)
[2023-10-10 03:34] VITALS: BP 103/61; PULSE 68; RESP 20; O2SAT 98
[2023-10-10 03:48] LABS: Alanine Aminotransferase 13 IU/L (<35); Albumin 4.7 g/dL (3.5-5.0); Albumin Globulin Ratio 1.7 (1.0-2.8); Alkaline Phosphatase 57 U/L (38-126); Aspartate Aminotransferase 28 IU/L (14-36); Bilirubin Total 0.6 mg/dL (0.2-1.3); Bilirubin Unconjugated 0.1 mg/dL (0.0-1.1); Globulin 2.8 g/dL (1.7-4.1); HEMOLYSIS < 15 (0-50); Total Protein 7.5 g/dL (6.3-8.2)
== END 2023-10-10 03:40 | disposition home or self-care (01) ==
PROVIDERS: Emergency Provider Emergency Medicine; PCP Physician Assistant
DX: Z32.01 Encounter for pregnancy test, result positive (principal); Z97.5 Presence of (intrauterine) contraceptive device
CPT/HCPCS: 36415; 76830; 76856; 80048; 80076; 81003; 81025; 84702; 85025; 86900; 86901; 96372; 99284; J2790

== ENCOUNTER → 2023-10-21 09:00 | Outpatient (CLI) | payer OTHER, MEDICAID, SELFPAY ==
[2023-10-21 12:19] LABS: HCG Quantitative /Beta subunit 2410.1 mIU/mL
== END ==
PROVIDERS: PCP Nurse Practitioner Family; Referring Provider Specialist; Visit Provider Specialist
DX: Z32.01 Encounter for pregnancy test, result positive (principal); Z97.5 Presence of (intrauterine) contraceptive device
CPT/HCPCS: 36415; 84702

== ENCOUNTER → 2023-10-22 11:37 | Outpatient (CLI) | payer OTHER, MEDICAID, SELFPAY ==
--- NOTE | 2023-10-22 11:38 | DI.US.S_ITS ---
PROCEDURE: US PELVIC COMPLETE INDICATIONS: rule out ectopic TECHNIQUE: Real-time scanning was performed of the pelvic organs, with image documentation. Additional endovaginal scanning was necessary due to incomplete visualization of the adnexal and endometrial structures by transabdominal scanning. COMPARISON: [facility], US, US PELVIC COMPLETE, 10/10/2023, 0:22. [facility], US, US PELVIC COMPLETE, 10/21/2023, 8:59. FINDINGS: Uterus: Uterus is anteverted and normal in size at 7.2 x 4.4 x 6.6 cm. The myometrium is homogeneous. Heterogeneous hyperechoic lesion is seen in the endometrium measuring approximately 1.9 x 2.4 x 1.9 cm. Adjacent shadowing intrauterine device is present. No intrauterine fluid collection. Ovaries: The right ovary measures 2.8 x 2.1 x 2.4 cm, with a calculated ovarian volume of 12.3 cc. The left ovary measures 2.0 x 1.1 x 1.2 cm, with a calculated ovarian volume of 4.0 cc. The ovaries have a normal sonographic appearance. Less than 12 follicles can be seen in each ovary. No adnexal masses are seen. Peripherally enhancing lesion again seen in the right ovary measuring 1.7 x 1.2 x 1.7 cm. Other: No pathologic free abdominal or pelvic fluid. IMPRESSION: 1. Intrauterine device is present. Heterogeneously hyperechoic peripherally calcified lesion again seen in the endometrium, which has increased in size and now measures up to 2.4 cm compared to 1.9 cm on the ultrasound from 10/10/2023. No gestational sac is seen. Findings are most suspicious for an abnormal nonviable intrauterine and gestational trophoblastic disease is not excluded. An endometrial based lesion such as a polyp is not excluded. No adnexal mass is seen although ectopic cannot be entirely excluded. 2. Right ovarian hemorrhagic cyst has decreased in size. Approved by: Jimenez Villanueva M.D. on 10/22/2023 at 13:41
== END ==
PROVIDERS: PCP Nurse Practitioner Family; Referring Provider Specialist; Visit Provider Specialist
DX: Z32.01 Encounter for pregnancy test, result positive (principal); N85.9 Noninflammatory disorder of uterus, unspecified; Z97.5 Presence of (intrauterine) contraceptive device
CPT/HCPCS: 76856

== ENCOUNTER 2023-10-26 09:01 | Day surgery (SDC) | payer OTHER, MEDICAID, SELFPAY ==
[2023-10-22 12:16] VITALS: BMI 24.0
[2023-10-26] VITALS (7 sets, daily range): BP systolic 98–118; BP diastolic 63–72; PULSE 78–117; RESP 10–16; TEMP 36.6–37.4; O2SAT 99–100; BMI 24.0
--- NOTE | 2023-10-26 | PATH_ITS ---
[facility] Accession Number: [id number] No. of containers..01 Tissue . 01 Material submitted: . endometrium - UTERINE CONTENTS . 01 Diagnosis: UTERINE CONTENTS: Products of conception identified. Outside consultation pending to assess for molar gestation; results will be reported as an addendum. MRV 10/29/2023 0818 Local . 01 Electronically signed: . Rosalba Sampson MD, Pathologist NPI- [id number] . 01 Gross description: . Received in formalin with two identifiers and uterine contents, are multiple flynn soft tissue fragments admixed with hemorrhagic material aggregating to 12.6 x 9.4 x 2.3 cm. Submitted entirely in cassettes A1-A12. ([id number]) /ZENIA 10/27/2023 1116 Local . 01 Pathologist provided ICD-10: O02.1, N85.8, Z30.432 . 01 CPT . 919209 Specimen Comment: A courtesy copy of this report has been sent to [facility] Pathology Performed at: [address] [address], [place], [place] [id number] MD William Klein MD Phone: [phone]
[2023-10-26] MEDS: LACTATED RINGERS 1,000 ML 42 ML IV (09:19)
--- NOTE | 2023-10-26 09:44 | PM.HP.1 ---
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 She reports feeling fine, minimal pain. Has had heavier vaginal bleeding than she usually experiences over the last few weeks. She was seen in our ER on 10/08, diagnosed with possible ectopic , and was transferred to another hospital to receive IM methotrexate. She was then seen for follow-up last week, as she did not have follow-up scheduled with the other facility. She was noted to have an intrauterine mass as well as increasing hCG quant, thus was counseled for hysteroscopy/D&C with possible laparoscopy. [facility] Medical History (Updated 10/26/23 @ 09:50 by Vidya Perales DO) Pyelonephritis Social History household members: family Smoking Status: Never smoker alcohol intake: current Meds Home Medications and Allergies Allergies Allergy/AdvReac Type Severity Reaction Status Date / Time red dye Allergy Rash Verified 10/26/23 09:20 Review of Systems Review of Systems ROS: Yes All systems reviewed with the patient and are negative except as otherwise documented Exam Vital Signs (past 8 hours): - 10/26/23 09:31 Temperature 99.3 F Pulse Rate 105 H Respiratory Rate 16 Blood Pressure 111/71 Pulse Oximetry 100 Oxygen Delivery Method Room Air Oxygen Delivery Method Room Air Const General: healthy appearing, comfortable and No acute distress Resp Effort & Inspection: normal respiratory effort and able to speak in complete sentences Skin General: no rashes or lesions noted Neuro Cognition: normal cognition Speech: speech normal Extrem General: normal to inspection and no pedal edema Psych Mental Status: mental status grossly normal Mood: congruent mood Affect: normal affect Objective Imaging US - abdomen: Radiologist's impression: FINDINGS: Uterus: Uterus is anteverted and normal in size at 7.2 x 4.4 x 6.6 cm. The myometrium is homogeneous. Heterogeneous hyperechoic lesion is seen in the endometrium measuring approximately 1.9 x 2.4 x 1.9 cm. Adjacent shadowing intrauterine device is present. No intrauterine fluid collection. Ovaries: The right ovary measures 2.8 x 2.1 x 2.4 cm, with a calculated ovarian volume of 12.3 cc. The left ovary measures 2.0 x 1.1 x 1.2 cm, with a calculated ovarian volume of 4.0 cc. The ovaries have a normal sonographic appearance. Less than 12 follicles can be seen in each ovary. No adnexal masses are seen. Peripherally enhancing lesion again seen in the right ovary measuring 1.7 x 1.2 x 1.7 cm. Other: No pathologic free abdominal or pelvic fluid. IMPRESSION: 1. Intrauterine device is present. Heterogeneously hyperechoic peripherally calcified lesion again seen in the endometrium, which has increased in size and now measures up to 2.4 cm compared to 1.9 cm on the ultrasound from 10/10/2023. No gestational sac is seen. Findings are most suspicious for an abnormal nonviable intrauterine and gestational trophoblastic disease is not excluded. An endometrial based lesion such as a polyp is not excluded. No adnexal mass is seen although ectopic cannot be entirely excluded. 2. Right ovarian hemorrhagic cyst has decreased in size. Approved by: Jimeenz Villanueva M.D. on 10/22/2023 at 13:41 Labs Labs: 10/09/23 hCG quant 1181 10/21/23 hCG quant 2410 Assessment & Plan Assessment and plan (1) IUD : Status: Acute (2) Abnormal : Qualifiers: Trimester: first trimester Qualified Code(s): O26.91 - related conditions, unspecified, first trimester Status: Acute Plan 22yo with Kyleena IUD in place with of unknown location, suspected to be intrauterine based on imaging. I discussed with the patient the plan to perform hysteroscopy with intrauterine mass resection and D&C. I discussed performing diagnostic laparoscopy to ensure no abnormal intrabdominal findings, however given no findings on ultrasound, as well as an intrauterine mass, I highly suspect this is an abnormal intrauterine and that the diagnostic laparoscopy would not add much to our evaluation today. I did inform the patient of possibility of no tissue found in the uterus, and possible need for additional surgery, however I feel this risk is very low. Patient agrees, and would like to proceed with only performing hysteroscopy/D&C today. She also desires another IUD placed. We discussed exchanging her Kyleena IUD for a Mirena IUD, as the Mirena is effective for longer, has longer data, and will be placed while she is asleep. -plan for hysteroscopy, D&C, with Mirena IUD placement today -plan to follow hCG quants to zero -plan for same day surgery Surgery consent We discussed the risks/benefits/alternatives to the proposed procedure, to include but not limited to: -risk of bleeding, requiring medications, blood products, or other procedures as indicated -risk of infection, requiring prolonged hospital stay or other procedures -risk of injury to other structures, including bowel, bladder, blood vessels, nerves, etc. which may also require additional procedures -risk of adverse reaction to anesthesia or medications -risk of venous thromboembolism and associated sequelae -risk of rare complications such as cardiac arrest, or extremely rarely, Patient is aware of the risks, and desires to proceed with planned surgical procedure. Time-Based Coding :: [30min] spent with patient and on the chart (including review of chart, obtaining history, exam, reviewing outside data, placing orders, documenting exam and treatment plan, and counseling patient) on [10/26/23].
[2023-10-26] MEDS: SCOPOLAMINE 1 PATCH TOP (09:49)
--- NOTE | 2023-10-26 10:30 | SUR.OPER ---
Lithotomy on padded OR bed, head on pillow, arms secured on padded arm boards at <90 degrees abduction. Legs secured in padded yellow fins stirrups.
--- NOTE | 2023-10-26 11:52 | P.OP_ITS ---
Operative Date/Time/Diagnoses Date of procedure: 10/26/23 Time of procedure: 11:52 Pre-op diagnosis: Abnormal Post-op diagnosis: same Procedure & Clinicians Procedure: Diagnostic hysteroscopy Hysteroscopic uterine mass excision Dilation and curettage Mirena intrauterine device placement Same procedure as scheduled: Yes Indications: 22yo [id number] with abnormal of unknown location, suspected intrauterine based on imaging findings. After failed methotrexate therapy and continuing rise in her hCG level, thus she was counseled and consented for the above procedures. Surgeon: Vidya Perales Click Yes if Unassisted: Yes Anesthesia Type: General Operative Notes Findings: Intrauterine mass noted, filling most of the uterine cavity. Specimen(s): other (uterine contents) Applied: implant(s) (Mirena IUD) Estimated Blood Loss (mL): 100 Blood products transfused: none Procedure in detail: The risks, benefits, indications and alternatives of the procedure were reviewed with the patient and informed consent was obtained. The pt was taken to the operating room where general anesthesia with LMA was obtained without difficulty. The pt was then placed in the low lithotomy position using gel- padded Wayne stirrups. Sequential compression devices were placed bilaterally for VTE prophylaxis. The pt was then prepped and draped in the sterile fashion. A sterile speculum was placed in the patient?s vagina and the cervix was visualized. A single tooth tenaculum was used to grasp the anterior lip of the cervix. The Kyleena IUD strings were grasped and the IUD was removed intact. The cervix was then gently, dilated to a size 8 Hegar dilator. The operative hysteroscope was first primed and pressure set. The operative hysteroscope was then advanced through the endocervical canal under direct visualization. The uterus was distended with warm saline, and notable for the above findings. The Myosure XL was then inserted into the operative hysteroscope. The intrauterine mass was then excised using the Myosure. A sharp curettage was also performed to ensure all tissue was removed. Tissue obtained was sent to pathology for review. A Mirena IUD was then placed per hammer driver's protocol, and the strings trimmed to 2cm. The single tooth tenaculum was removed from the anterior lip of the cervix. The tenaculum site was noted to be hemostatic after direct pressure and silver nitrate was applied. 1g of TXA was administered IV to aid in hemostasis due to brisk uterine bleeding. After observation, the bleeding slowed to an appropriate amount. All instruments were then removed from the patient?s vagina. Hysteroscopic fluid deficit was 1460cc of normal saline, with a significant amount of fluid on the floor. The patient tolerated the procedure well. At the completion of the case the sponge and needle counts were correct x 2. The patient was taken to the PACU in stable condition. Complications: none Post-operative Condition: stable Disposition: PACU Plan for aftercare: Discharge to home once patient is meeting all discharge criteria.
[2023-10-26] MEDS: OXYCODONE IR 5 MG TABLET PO (12:01)
== END 2023-10-26 12:40 | disposition home or self-care (01) ==
PROVIDERS: PCP Nurse Practitioner Family; Referring Provider Student in an Organized Health Care Education/Training Program; Visit Provider Student in an Organized Health Care Education/Training Program
PROC: 0UDB8ZZ Extraction of Endometrium, Via Natural or Artificial Opening Endoscopic (ICD-10-PCS; CPT 58558; principal; 2023-10-26 10:15)
DX: O02.1 Missed abortion (principal); Z30.433 Encounter for removal and reinsertion of intrauterine contraceptive device
CPT/HCPCS: 59820; 58300; 58301; C1713; J1100; J2405; J2704; J3010; J7298

== ENCOUNTER → 2023-11-10 14:44 | Outpatient (CLI) | payer OTHER, MEDICAID, SELFPAY ==
[2023-11-10 15:36] LABS: HCG Quantitative /Beta subunit < 2.39 mIU/mL
== END ==
PROVIDERS: PCP Nurse Practitioner Family; Referring Provider Student in an Organized Health Care Education/Training Program; Visit Provider Student in an Organized Health Care Education/Training Program
DX: O26.91 Pregnancy related conditions, unspecified, first trimester (principal); T83.31XA Breakdown (mechanical) of intrauterine contraceptive device, initial encounter
CPT/HCPCS: 84702